=== PATIENT | female | born 2000 | race Caucasian/White ===

== ENCOUNTER 2021-07-05 23:15 | Emergency (ER) | payer BC ==
[~2021-07-05] VITALS: Ht 170.2 cm; Wt 125.0 kg
[2021-07-06 00:15] VITALS: BP 127/86
[2021-07-06] MEDS ORDERED: PROCHLORPERAZINE 10 MG/2 ML VIAL. IM ONE (01:00)
[2021-07-06] MEDS ORDERED: diphenhydrAMINE 50 MG/ML VIAL IM ONE (01:00)
[2021-07-06] MEDS ORDERED: KETOROLAC 60 MG/2 ML VIAL. IM ONE (01:00)
--- NOTE | 2021-07-06 01:00 | PHYS DOC ---
Adult General Chief Complaint Chief Complaint: HEADACHE HPI HPI Patient is a 20 year old female presenting to emergency department for evaluation of a headache that she says has been going on since 11:00am on July 05. Patient states that the headache is diffuse and pounding in her frontal area and does not radiate but causes her nausea and photosensitivity. She denies fevers chills vomiting neck stiffness vision changes unilateral weakness numbness or tingling. She says that she used to get migraine headaches but has not had one in a while but this 1 feels the same as prior migraine headaches. The headache was not severe in intensity to start rather progressively got worse throughout the entire day. She is in no acute distress with normal vital signs. Review of Systems Review of Systems Constitutional: Denies fever or chills [] Eyes: Denies change in visual acuity, redness, or eye pain [] HENT: Denies nasal congestion or sore throat [] Respiratory: Denies cough or shortness of breath [] Cardiovascular: No additional information not addressed in HPI [] GI: Denies abdominal pain. + nausea. No vomiting, bloody stools or diarrhea [] : Denies dysuria or hematuria [] Musculoskeletal: Denies back pain or joint pain [] Integument: Denies rash or skin lesions [] Neurologic: + headache. No focal weakness or sensory changes [] All other systems were reviewed and found to be within normal limits, except as documented in this note. Current Medications Current Medications Current Medications Medications (Trade) Dose Ordered Sig/Paulo Start Time Stop Time Status Last Admin Dose Admin Diphenhydramine HCl (Benadryl) 50 mg 1X ONCE 07/06/21 01:00 07/06/21 01:01 Ketorolac Tromethamine (Toradol Im) 60 mg 1X ONCE 07/06/21 01:00 07/06/21 01:01 Prochlorperazine Edisylate (Compazine) 10 mg 1X ONCE 07/06/21 01:00 07/06/21 01:01 Allergies Allergies Allergies Coded Allergies Type Severity Reaction Last Updated Verified No Known Drug Allergies 07/06/21 No Physical Exam Physical Exam Constitutional: Well developed, well nourished, no acute distress, non-toxic appearance. [] HENT: Normocephalic, atraumatic, bilateral external ears normal, oropharynx moist, no oral exudates, nose normal. [] Eyes: PERRLA, EOMI, conjunctiva normal, no discharge. [] Neck: Normal range of motion, no tenderness, supple, no stridor. [] Cardiovascular:Heart rate regular rhythm, no murmur [] Lungs & Thorax: Bilateral breath sounds clear to auscultation [] Abdomen: Bowel sounds normal, soft, no tenderness, no masses, no pulsatile masses. [] Skin: Warm, dry, no erythema, no rash. [] Back: No tenderness, no CVA tenderness. [] Extremities: No tenderness, no cyanosis, no clubbing, ROM intact, no edema. [] Neurologic: Alert and oriented X 3, normal motor function, normal sensory function, no focal deficits noted. Negative Kernig's and Brudzinski's. EKG EKG [] Radiology/Procedures Radiology/Procedures [] Course & Med Decision Making Course & Med Decision Making Patient with classic migraine symptoms with no red flag signs or symptoms. I recommended that we treat her migraine headache symptoms. I discussed additional testing with blood work and imaging and the benefits and the risks and the decision was made not to pursue testing rather she just wants her headache treated. Patient feels better after treatment and has benign initial and repeat neurologic exam. There is no signs of acute cavernous sinus thrombosis subarachnoid hemorrhage meningitis or other emergent pathology to cause her headache. She says that she feels much better and would like to go home. I recommended that she follow with her primary care provider within 2 to 3 days for recheck and if she develops worsening pain fevers vomiting neurologic changes or other general concerns that she come back to the emergency department immediately. Patient aware and agreeable with plan and verbalized understanding of the above instructions. Dragon Disclaimer Dragon Disclaimer This electronic medical record was generated, in whole or in part, using a voice recognition dictation system. Departure Departure Impression: Primary Impression: Acute headache Disposition: HOME / SELF CARE / HOMELESS Condition: STABLE Referrals: NO PCP (PCP) Patient Instructions: General Headache Without Cause Problem Qualifiers Primary Impression: Acute headache Headache type: unspecified Intractability: not intractable Qualified Codes: R51.9 - Headache, unspecified LAURIE DUKE DO July 06, 2021 01:00
== END 2021-07-06 02:50 | disposition home or self-care (01) ==
LOC: ER 23:15
DX: G43.909 Migraine, unspecified, not intractable, without status migrainosus (principal)
CPT/HCPCS: 96372; 99284; J0780; J1200